=== PATIENT | male | born 1940 | race Caucasian/White ===

== ENCOUNTER → 2020-01-16 08:46 | Outpatient (CLI) | payer MEDICARE, OTHER, SELFPAY ==
--- NOTE | 2020-01-16 | DI.RAD.S_ITS ---
PROCEDURE: XR CHEST 2V INDICATIONS: Pulmonary nodules TECHNIQUE: 2 views of the chest were acquired. COMPARISON: None. FINDINGS: Surgical changes and devices: Surgical clips project over the periaortic region. Lungs and pleura: Mild streaky bibasilar opacities. No focal consolidation. Possible 1.5 cm nodular density in the left lower lung zone. No pleural effusions or pneumothorax. Mediastinum: Mediastinal contours are within normal limits with tortuous course of the thoracic aorta. Heart size is normal. Bones and chest wall: No suspicious bony abnormalities. Soft tissues appear unremarkable. IMPRESSION: Possible 1.5 cm left lower lung pulmonary nodule. Recommend comparison with any prior available chest radiographs versus further characterization with chest CT. Otherwise, no acute cardiopulmonary abnormalities. Dictated by: Jose M Salter M.D. on 01/16/2020 at 10:03 Approved by: Jose M Salter M.D. on 01/16/2020 at 10:06
== END ==
PROVIDERS: Referring Provider Internal Medicine; Visit Provider Internal Medicine
DX: R91.8 Other nonspecific abnormal finding of lung field (principal)
CPT/HCPCS: 71046

== ENCOUNTER → 2020-01-24 09:46 | Outpatient (CLI) | payer MEDICARE, OTHER, SELFPAY ==
--- NOTE | 2020-01-24 | DI.US.S_ITS ---
PROCEDURE: US SCROTUM INDICATIONS: RIGHT TESTICULAR PAIN TECHNIQUE: Real-time scanning was performed of the scrotum and testicles, with image documentation. Color and pulse Doppler interrogation was performed of both testicles. COMPARISON: None. FINDINGS: Right: Testicle is normal in size at 6.0 x 2.6 x 3.9 cm, and homogenous in echotexture. Tubular ectasia of the rete testis. Epididymis is normal in overall size and morphology. No hydrocele or varicoceles. Overlying scrotal skin is normal in thickness. Left: Testicle is normal in size at 6.1 x 2.4 x 3.6 cm, and homogeneous in echotexture. Tubular ectasia of the rete testis. Epididymis is normal in overall size and morphology. Multiple epididymal cyst, largest measuring 19 mm. No hydrocele or varicoceles. Overlying scrotal skin is normal in thickness. Doppler: Color and pulse Doppler demonstrate normal and symmetric arterial flow in both testicles. IMPRESSION: 1. 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 Intermittent testicular torsion cannot be excluded and clinical correlation is recommended. 2. Multiple left epididymal cysts. Dictated by: Scott Resendez [facility] Interpreted: Trace Alvarado MD on 01/24/2020 at 11:16 Approved by: Trace Alvarado M.D. on 01/24/2020 at 14:01
== END ==
PROVIDERS: PCP Internal Medicine; Referring Provider Physician Assistant; Visit Provider Physician Assistant
DX: N50.811 Right testicular pain (principal); N50.89 Other specified disorders of the male genital organs; N50.3 Cyst of epididymis
CPT/HCPCS: 76870

== ENCOUNTER → 2020-06-27 14:59 | Outpatient (CLI) | payer MEDICARE, OTHER, SELFPAY ==
--- NOTE | 2020-06-27 | DI.CT.S_ITS ---
PROCEDURE: CT CHEST WO CON INDICATIONS: Other nonspecific abnormal finding of lung field TECHNIQUE: Noncontrast 5 mm thick sections acquired from the pulmonary apices to the posterior costophrenic angles. 1 mm lung window, 5 mm thick coronal and sagittal and 7 mm axial MIP reformats were then acquired. For radiation dose reduction, the following was used: automated exposure control, adjustment of mA and/or kV according to patient size. COMPARISON: [facility], , XR CHEST 2V, 01/16/2020, 8:46. FINDINGS: Image quality: There is metallic streak artifact associated with surgical clips in the mediastinum. Low-dose technique was performed. Lungs and pleura: Within the left lower lobe, there is a pulmonary nodule measuring up to 7 mm on series 3, image 186. This likely corresponds to the finding on prior chest x-ray. There is scarring within the lingula as well as laterally in the left lower lobe. Minimal scarring is also demonstrated in the inferior right middle and lower lobes. No acute consolidation. No pleural effusions or pneumothorax. Central and peripheral airways are patent and normal in caliber. Mediastinum: Heart size is normal. No pericardial effusion. There is mild coronary arterial vascular calcification. No mediastinal adenopathy by size criteria. Thoracic aorta and central pulmonary arteries are normal in size. Esophagus is normal in caliber. No hiatal hernia. Bones and chest wall: There is a small lucent lesion in the T4 vertebral body likely representing a hemangioma. No vertebral body compression fractures. No axillary or supraclavicular adenopathy by size criteria Abdomen: Visualized upper abdomen demonstrates a cyst in the right hepatic dome. IMPRESSION: 1. Small left lower lobe pulmonary nodule measuring up to 7 mm. Findings likely correspond to the nodular opacity on prior x-ray. Recommend follow-up in 12 months to demonstrate stability if clinically indicated. Dictated by: Ralph Steward M.D. on 06/27/2020 at 16:30 Approved by: Ralph Steward M.D. on 06/27/2020 at 16:35
== END ==
PROVIDERS: PCP Internal Medicine; Referring Provider Internal Medicine; Visit Provider Internal Medicine
DX: R91.1 Solitary pulmonary nodule (principal)
CPT/HCPCS: 71250

== ENCOUNTER 2020-11-10 12:26 | Emergency (ER) | payer MEDICARE, OTHER, SELFPAY ==
[2020-11-10] VITALS (24 sets, daily range): BP systolic 109–133; BP diastolic 71–99; PULSE 44–105; RESP 12–27; TEMP 36.6; O2SAT 94–100; BMI 22.7
--- NOTE | 2020-11-10 12:44 | DI.RAD.S_ITS ---
PROCEDURE: XR CHEST 1V INDICATIONS: chest pain TECHNIQUE: One view of the chest was acquired. COMPARISON: [facility], CR, XR CHEST 2V, 01/16/2020, 8:46. FINDINGS: Surgical changes and devices: Superior left mediastinal clips are seen, as before. Lungs and pleura: The previously seen left lower lung apparent nodular opacity is attributed to a nipple shadow. On this semiupright portable chest examination, no large pneumothorax or large pleural effusions are seen. No focal infiltrates are seen. Mediastinum: The cardiac contours are within normal limits. The aorta demonstrates calcification and tortuosity. Bones and chest wall: No suspicious bony lesions. Age-appropriate bony degenerative changes are seen. Overlying soft tissues appear unremarkable. IMPRESSION: No acute cardiopulmonary process is seen. Dictated by: Duc Aguilar M.D. on 11/10/2020 at 12:10 Approved by: Duc Aguilar M.D. on 11/10/2020 at 12:12
[2020-11-10 13:11] LABS: Add Manual Diff / Slide Review NO; Basophils Absolute Auto 100 /uL (0-100); Basophils Percent Auto 1.5 % (0-2); Eosinophils Absolute Auto 200 /uL (0-450); Eosinophils Percent Auto 3.4 % (2-4); Hematocrit 43.8 % (41-53); Lymphocytes Absolute Auto 600 /uL (1100-4500); Lymphocytes Percent Auto 12.4 % (25-40); Mean Corpuscular HGB Conc 34.3 % (30-36); Mean Corpuscular Hemoglobin 31.5 PG (26-34); Mean Corpuscular Volume 91.9 fL (80-100); Monocytes Absolute Auto 500 /uL (0-900); Monocytes Percent Auto 10.4 % (3-14); Neutrophils Absolute Auto 3400 /uL (1500-7000); Neutrophils Percent Auto 72.3 % (50-75); Platelet Count 202 X10^3/uL (150-400); Red Blood Cell Count 4.76 X10^6/uL (4.5-5.9); Red Cell Distribution Width 13.5 % (11.6-14.8); White Blood Cell Count 4.7 X10^3/uL (4.5-11.0)
[2020-11-10 13:15] LABS: INR 1.2 (0.9-1.3); Prothrombin Time 13.2 SECONDS (10.1-12.7)
[2020-11-10 13:17] LABS: PTT Partial Thromboplastin Tim 37 SECONDS (26.4-36.2)
[2020-11-10 13:19] LABS: Alanine Aminotransferase 43 IU/L (<50); Albumin 4.3 g/dL (3.5-5.0); Albumin Globulin Ratio 1.5 (1.0-2.8); Alkaline Phosphatase 67 U/L (38-126); Aspartate Aminotransferase 45 IU/L (17-59); BUN Creatinine Ratio 13.6 (6-22); Bilirubin Total 0.5 mg/dL (0.2-1.3); Blood Urea Nitrogen 9 mg/dL (9-20); Calcium 9.4 mg/dL (8.4-10.2); Carbon Dioxide 27 mmol/L (22-32); Chloride 99 mmol/L (98-107); Creatine Kinase 72 U/L (55-170); Estimated Glomerular Filt Rate > 60.0 mL/min (>60); Globulin 2.8 g/dL (1.7-4.1); Glucose 115 mg/dL (80-110); HEMOLYSIS < 15 (0-50); Lipase 124 U/L (23-300); Potassium 4.4 mmol/L (3.4-5.1); Sodium 134 mmol/L (137-145); Total Protein 7.1 g/dL (6.3-8.2)
--- NOTE | 2020-11-10 13:27 | ED.ARRPALP ---
HPI - Arrhythmia/Palpitations General Chief Complaint: Arrhythmia/Palpitations Stated Complaint: Heart issues/HBP Time Seen by Provider: 11/10/20 13:22 Source: patient Mode of arrival: Family Vehicle Limitations: no limitations History of Present Illness HPI narrative: Patient is a 80-year-old male. Is healthy except for what sounds like paroxysmal atrial fibrillation. He is on apixaban for this. States he does take it every day and has not missed a dose in the past 4 weeks. He has been on it since 2016. 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 His only other issue was hypothyroid and is on levothyroxine for this. Comes to the emergency department today because he feels like something is going on the left side of his chest. Last week he had a couple ?twinges ?in the left side of his chest but did not come in to be evaluated for this. He is having no lightheadedness. No shortness of breath. Is able to exercise like normal. And did this as recently as this morning. Related Data Home Medications Medication Instructions Recorded Confirmed apixaban 5 mg tablet 5 mg PO BID 07/31/20 11/10/20 levothyroxine 150 mcg capsule 150 mcg PO DAILY 07/31/20 11/10/20 Allergies Allergy/AdvReac Type Severity Reaction Status Date / Time sulfamethoxazole AdvReac Intermediate Swelling Verified 11/10/20 12:49 [From Bactrim] of Lip/Tongue/Throat trimethoprim [From Bactrim] AdvReac Intermediate Verified 11/10/20 12:50 Review of Systems Constitutional Constitutional: Denies chills, Denies fatigue, Denies fever(s) and Denies headache(s) Eyes Eyes: Denies change in vision ENT Ears, Nose, Mouth, and Throat: Denies headache(s) and Denies sore throat Cardiovascular Cardiovascular: Denies chest pain, Denies syncope, Reports irregular heart rhythm, Denies leg edema, Denies lightheadedness and Denies dyspnea Respiratory Respiratory: Denies cough and Denies dyspnea Gastrointestinal Gastrointestinal: Denies abdominal pain, Denies nausea and Denies vomiting Genitourinary Genitourinary: Denies dysuria Genitourinary: Denies dysuria Musculoskeletal Musculoskeletal: Denies arthralgias and Denies myalgias Integumentary/Breasts Skin/Breast: Denies rash Neurologic Neurologic: Denies behavioral changes, Denies syncope and Denies headache(s) Psychiatric Psychiatric: Denies behavioral changes Endocrine Endocrine: Denies fatigue Hematologic/Lymphatic On Anticoagulants: Yes Allergic/Immunologic Allergic/Immunologic: Denies urticaria Patient History Medical History Hearing loss Hypothyroid Paroxysmal A-fib Social History Smoking Status: Former smoker Smoking Status: Former smoker alcohol intake frequency: 0-2 drinks per day Substance Use Type: does not use Exam Initial Vital Signs Initial Vital Signs: Vital Signs Pulse Rate 99 H 11/10/20 12:35 Respiratory Rate 16 11/10/20 12:35 Pulse Oximetry 99 11/10/20 12:35 Const General: cooperative, comfortable and well developed Limitations: mental status not altered HENMT Head: normal to inspection and normocephalic Eyes General: appearance normal, both eyes and all related structures Chest Chest: No crepitus Resp Effort & Inspection: normal respiratory effort Auscultation: clear to auscultation bilaterally Cardio Rate: tachycardic Rhythm: abnormal rhythm GI Inspection: non-distended Palpation: soft Skin Lesions: no lesions Rashes: no rashes Neuro General: patient alert, patient awake and patient oriented x3 Cognition: normal cognition Speech: speech normal Extrem General: normal to inspection and capillary refill normal Psych Appearance: grossly normal and well kempt Procedures Cardioversion Consent Signed: Yes Indication: Atrial fibrillation Stability: Stable Number of attempts (shocks): 1 Joules used: 120 Cardiac rhythm post-cardioversion: Sinus bradycardia Procedural Sedation Consent signed: Yes Time out performed: Yes Indication: cardioversion Presedation Evaluation: See note ASA Class: II Mallampati Airway Classification: Class I Preparation: desk monitor applied, pulse oximeter, capnometry used, supplemental O2 applied and suction/airway equipment at bedside Fentanyl: IV Fentanyl dose (mcg): 12 IV Propofol dose (mg): 50 Intraservice time/total sedation time (min): 10 ED Sedation Level: Moderate (Concious) Patient Tolerated Procedure: No complications Complications: none Scores GCS Holcomb coma scale eye opening: Spontaneous Holcomb coma scale verbal response: Orientated Dario coma scale motor response: Obey commands Dario coma scale total score: 15 Course Orders Ordered: ED Orders 11/10/20 12:44 XR chest 1V Stat 04/25/21 12:54 Complete Blood Count AUTO DIFF Stat Comprehensive Metabolic Panel Stat Lipase Stat Partial Thromboplastin Time Stat Prothrombin Time INR Stat Troponin & CK Cardiac Panel Stat 11/10/20 12:55 EKG-12 Lead Stat 11/10/20 14:21 COVID19 -Nasal swab/Pre-Proc Stat 11/10/20 14:36 EKG-12 Lead Stat Discontinued Medications Fentanyl (Fentanyl 100 Mcg/2 Ml Inj) 12.5 mcg IV NOW ONE Stop: 11/10/20 13:45 Last Admin: 11/10/20 14:25 Dose: 12.5 mcg Documented by: ISAK Sodium Chloride (Normal Saline 0.9%) 1,000 mls @ 1,000 mls/hr IV BOLUS ONE Stop: 11/10/20 14:48 Last Admin: 11/10/20 14:26 Dose: 1,000 mls/hr Documented by: ISAK Sodium Chloride (Normal Saline 0.9%) 1,000 mls @ 1,000 mls/hr IV BOLUS ONE Stop: 11/10/20 15:05 Last Admin: 11/10/20 14:26 Dose: Not Given Documented by: ISAK Propofol (Propofol 200 Mg/20 Ml Vial) 100 mg IV NOW ONE Stop: 11/10/20 13:45 Last Admin: 11/10/20 14:25 Dose: 100 mg Documented by: ISAK Vital Signs Vital signs: Vital Signs - 8 hr 11/10/20 12:35 11/10/20 12:45 11/10/20 13:00 Temperature 97.9 F Pulse Rate 99 H 98 H 96 H Respiratory Rate 16 20 17 Blood Pressure 133/84 129/99 H Blood Pressure [Left Arm] Pulse Oximetry 99 99 97 11/10/20 13:30 11/10/20 14:00 11/10/20 14:04 Temperature Pulse Rate 105 H 95 H 90 Respiratory Rate 22 23 22 Blood Pressure 109/80 118/95 H Blood Pressure [Left Arm] Pulse Oximetry 97 98 98 11/10/20 14:05 11/10/20 14:10 11/10/20 14:15 Temperature Pulse Rate 90 99 H 91 H Respiratory Rate 21 17 26 H Blood Pressure 120/91 H 126/81 124/92 H Blood Pressure [Left Arm] Pulse Oximetry 94 98 100 11/10/20 14:25 11/10/20 14:27 11/10/20 14:30 Temperature Pulse Rate 87 89 88 Respiratory Rate 14 20 12 Blood Pressure 122/80 123/80 Blood Pressure [Left Arm] 113/94 H Pulse Oximetry 97 98 94 11/10/20 14:35 11/10/20 14:40 11/10/20 14:45 Temperature Pulse Rate 95 H 93 H 90 Respiratory Rate 14 16 25 H Blood Pressure 115/87 111/91 H 113/94 H Blood Pressure [Left Arm] Pulse Oximetry 97 98 100 11/10/20 14:50 11/10/20 14:51 11/10/20 14:54 Temperature Pulse Rate 54 L 70 52 L Respiratory Rate 18 25 H 18 Blood Pressure 128/96 H 130/75 Blood Pressure [Left Arm] 128/96 H 130/75 Pulse Oximetry 94 99 99 11/10/20 14:55 11/10/20 14:58 11/10/20 15:00 Temperature Pulse Rate 49 L 48 L 48 L Respiratory Rate 18 24 27 H Blood Pressure 118/71 117/76 Blood Pressure [Left Arm] 117/76 Pulse Oximetry 99 100 100 11/10/20 15:04 11/10/20 15:09 Temperature Pulse Rate 44 L 48 L Respiratory Rate 14 25 H Blood Pressure Blood Pressure [Left Arm] 114/79 115/82 Pulse Oximetry 100 100 MDM - Arrhythmia/Palpitations Lab Data Attestation: I reviewed the patient's lab results. Result diagrams: 11/10/20 12:54 11/10/20 12:54 Labs: Lab Results 11/10/20 11/10/20 11/10/20 Range/Units 12:54 12:54 12:54 WBC 4.7 (4.5-11.0) X10^3/uL RBC 4.76 (4.5-5.9) X10^6/uL Hgb 15.0 (13.5-17.5) g/dL Hct 43.8 (41-53) % MCV 91.9 (80-100) fL MCH 31.5 (26-34) PG MCHC 34.3 (30-36) % RDW 13.5 (11.6-14.8) % Plt Count 202 (150-400) X10^3/uL Neut % (Auto) 72.3 (50-75) % Lymph % (Auto) 12.4 L (25-40) % [place] % (Auto) 10.4 (3-14) % Eos % (Auto) 3.4 (2-4) % Baso % (Auto) 1.5 (0-2) % Neut # (Auto) 3400 (2426-2044) /uL Lymph # (Auto) 600 L (3182-9022) /uL [place] # (Auto) 500 (0-900) /uL Eos # (Auto) 200 (0-450) /uL Baso # (Auto) 100 (0-100) /uL PT 13.2 H (10.1-12.7) SECONDS INR 1.2 (0.9-1.3) APTT 37 H (26.4-36.2) SECONDS Sodium 134 L (137-145) mmol/L Potassium 4.4 (3.4-5.1) mmol/L Chloride 99 (98-107) mmol/L Carbon Dioxide 27 (22-32) mmol/L BUN 9 (9-20) mg/dL Creatinine 0.66 (0.66-1.25) mg/dL Estimated GFR > 60.0 (>60) mL/min BUN/Creatinine Ratio 13.6 (6-22) Glucose 115 H (80-110) mg/dL Calcium 9.4 (8.4-10.2) mg/dL Total Bilirubin 0.5 (0.2-1.3) mg/dL AST 45 (17-59) IU/L ALT 43 (<50) IU/L Alkaline Phosphatase 67 (38-126) U/L Total Creatine Kinase 72 (55-170) U/L CK-MB (CK-2) TNP CK-MB (CK-2) Rel Index TNP Troponin I < 0.012 (0.01-0.034) ng/mL Total Protein 7.1 (6.3-8.2) g/dL Albumin 4.3 (3.5-5.0) g/dL Globulin 2.8 (1.7-4.1) g/dL Albumin/Globulin Ratio 1.5 (1.0-2.8) Lipase 124 (23-300) U/L SARS-CoV-2 (PCR) (Negative) 11/10/20 Range/Units 14:21 WBC (4.5-11.0) X10^3/uL RBC (4.5-5.9) X10^6/uL Hgb (13.5-17.5) g/dL Hct (41-53) % MCV (80-100) fL MCH (26-34) PG MCHC (30-36) % RDW (11.6-14.8) % Plt Count (150-400) X10^3/uL Neut % (Auto) (50-75) % Lymph % (Auto) (25-40) % [place] % (Auto) (3-14) % Eos % (Auto) (2-4) % Baso % (Auto) (0-2) % Neut # (Auto) (6477-7199) /uL Lymph # (Auto) (8417-9435) /uL [place] # (Auto) (0-900) /uL Eos # (Auto) (0-450) /uL Baso # (Auto) (0-100) /uL PT (10.1-12.7) SECONDS INR (0.9-1.3) APTT (26.4-36.2) SECONDS Sodium (137-145) mmol/L Potassium (3.4-5.1) mmol/L Chloride (98-107) mmol/L Carbon Dioxide (22-32) mmol/L BUN (9-20) mg/dL Creatinine (0.66-1.25) mg/dL Estimated GFR (>60) mL/min BUN/Creatinine Ratio (6-22) Glucose (80-110) mg/dL Calcium (8.4-10.2) mg/dL Total Bilirubin (0.2-1.3) mg/dL AST (17-59) IU/L ALT (<50) IU/L Alkaline Phosphatase (38-126) U/L Total Creatine Kinase (55-170) U/L CK-MB (CK-2) CK-MB (CK-2) Rel Index Troponin I (0.01-0.034) ng/mL Total Protein (6.3-8.2) g/dL Albumin (3.5-5.0) g/dL Globulin (1.7-4.1) g/dL Albumin/Globulin Ratio (1.0-2.8) Lipase (23-300) U/L SARS-CoV-2 (PCR) Negative (Negative) Imaging Data Chest x-ray: Radiologist's Impresson: [facility] [place] [id number] ReportSigned Patient: Gael Du RMR#: [id number]: 3Acct:[id number]/Sex: 80 / MDate of Service: 11/10/20Loc: EDAccession Number: [id number] Procedure: XR chest 1V Ordering Provider: Zay Hernandez D.O. PROCEDURE: XR CHEST 1V INDICATIONS: chest pain TECHNIQUE: One view of the chest was acquired. COMPARISON: [facility], CR, XR CHEST 2V, 01/16/2020, 8:46. FINDINGS: Surgical changes and devices: Superior left mediastinal clips are seen, as before. Lungs and pleura: The previously seen left lower lung apparent nodular opacity is attributed to a nipple shadow. On this semiupright portable chest examination, no large pneumothorax or large pleural effusions are seen. No focal infiltrates are seen. Mediastinum: The cardiac contours are within normal limits. The aorta demonstrates calcification and tortuosity. Bones and chest wall: No suspicious bony lesions. Age-appropriate bony degenerative changes are seen. Overlying soft tissues appear unremarkable. IMPRESSION: No acute cardiopulmonary process is seen. Dictated by: Duc Aguilar M.D. on 11/10/2020 at 12:10 Approved by: Duc Aguilar M.D. on 11/10/2020 at 12:12 ECG Data Attestation: I personally reviewed and interpreted this ECG as follows: Prior ECG tracings: not available for review Interpretation: Atrial fibrillation Ventricular rate 89 Left axis deviation Normal QRS Nonspecific ST T wave changes Post cardioversion EKG Sinus bradycardia Ventricular rate of 49 Occasional PAC Normal QRS Left axis deviation No ST T wave changes MDM Narrative Medical decision making narrative: Patient arrived in atrial fibrillation and heart rate ranged anywhere from mid 80s to mid 120s. He was not hypotensive. Discussed with him his option of cardioversion verses medication. He has been on apixaban every day for at least the past 4 weeks so he is a candidate for cardioversion. After this discussion he opted to be cardioverted and this was completed with 1 attempt as described above. Afterwards patient was bradycardic however he states that his heart rate is normally in the 40s. He stood at bedside and had no symptoms with regard to this. Will hold on putting him on any further medication. Will have him contact his primary doctor for follow-up. He was given return precautions and follow-up instructions. He expressed understanding and agreement. Discharge Plan Departure Patient Disposition: Home Clinical Impression: Atrial fibrillation Instructions: DI for Cardioversion, DI for Atrial Fibrillation Activity Restrictions/Additional Instructions: You do need to continue all of your medication to include the Eliquis. Contact your primary provider for a follow-up. Return to the emergency department for any new or worsening symptoms Prescriptions: No Action Eliquis 5 mg tablet 5 mg PO BID RF: 0 levothyroxine 150 mcg capsule 150 mcg PO DAILY RF: 0 Referrals: Ramiro Granger MD [Primary Care Provider] -
[2020-11-10 13:31] LABS: Troponin I < 0.012 ng/mL (0.01-0.034)
[2020-11-10] MEDS: fentaNYL 100 MCG/2 ML INJ 12.5 MCG IV (14:25)
[2020-11-10] MEDS: propofoL 200 MG/20 ML VIAL 100 MG IV (14:25)
[2020-11-10] MEDS: SODIUM CHLORIDE 0.9% 1,000 ML 1000 ML IV (14:26)
[2020-11-10 14:42] LABS: COVID19 -Nasal RAPID Negative (Negative)
--- NOTE | 2020-11-10 15:02 | PC.NURSE ---
patient was shocked one time and his heart rate dropped to mid 40s. His EKG show afib with slow ventricular response. He was denying pain or discomfort. His new EKG shows sinus jimi at 44-50 bpm.
== END 2020-11-10 15:41 | disposition home or self-care (01) ==
PROVIDERS: Emergency Provider Emergency Medicine; PCP Family Medicine
DX: I48.91 Unspecified atrial fibrillation (principal); Z20.822 Contact with and (suspected) exposure to COVID-19
CPT/HCPCS: 36415; 71045; 80053; 82550; 83690; 84484; 85025; 85610; 85730; 87635; 92960; 93005; 96360; 99152; 99285; C9803; J2704; J3010

== ENCOUNTER 2020-11-16 16:02 | Emergency (ER) | payer MEDICARE, OTHER, SELFPAY ==
[2020-11-16] VITALS (18 sets, daily range): BP systolic 107–152; BP diastolic 64–79; PULSE 53–123; RESP 18–44; TEMP 36.8; O2SAT 92–98; BMI 22.9
--- NOTE | 2020-11-16 16:30 | DI.RAD.S_ITS ---
PROCEDURE: XR CHEST 1V INDICATIONS: palpitations, new onset Afib TECHNIQUE: One view of the chest was acquired. COMPARISON: [facility], CT, CT CHEST WO CON, 06/27/2020, 15:06. [facility], CR, XR CHEST 2V, 01/16/2020, 8:46. [facility], CR, XR CHEST 1V, 11/10/2020, 12:47. FINDINGS: Surgical changes and devices: Surgical clips overlying the mediastinum are unchanged. Overlying EKG wires. Lungs and pleura: Stable elevation of the left hemidiaphragm. Linear densities at the left lung base likely representing atelectasis/scarring. Nodular densities overlying the mid to lower lungs bilaterally with the right measuring approximately 1.2 centimeters may represent nipple shadows. Known lung nodule better depicted on comparison CT. No focal consolidation, pneumothorax, or pleural effusion. Mediastinum: Mediastinal contours appear normal. Heart size is normal. Bones and chest wall: No suspicious bony lesions. Degenerative changes of the shoulders and spine. Overlying soft tissues appear unremarkable. IMPRESSION: No evidence of an acute cardiopulmonary abnormality. Lung nodule better depicted on comparison CT. Dictated by: Bryan St D.O. on 11/16/2020 at 15:59 Approved by: Bryan [address] D.O. on 11/16/2020 at 16:03
--- NOTE | 2020-11-16 16:32 | ED_ITS ---
HPI - Arrhythmia/Palpitations General Chief Complaint: Arrhythmia/Palpitations Stated Complaint: High HR, Palps, Poss AFIB Time Seen by Provider: 11/16/20 16:15 Source: patient Mode of arrival: Family Vehicle Limitations: no limitations History of Present Illness HPI narrative: 80-year-old male former smoker with history of AFib on apixaban) and hypothyroid presents with his in the chief complaint of a recurrence of palpitations and some shortness of breath that started about 8:00 a.m. this morning. He has been on apixaban for quite some time and states he has missed no does in quite some time. He was seen and evaluated here under very similar circumstances on November 10 and had a successful cardioversion with propofol. 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 He denies any forbes ge in any of his medications. He denies any fever chills. He has no chest pain. MD complaint: rapid heart beat and irregular heart beat Onset (ago): hour(s) Duration: constant Severity: moderate Context: occurred during rest Arrhythmia history: atrial fibrillation Associated symptoms: shortness of breath Related Data Home Medications Medication Instructions Recorded Confirmed apixaban 5 mg tablet 5 mg PO BID 07/31/20 11/10/20 levothyroxine 150 mcg capsule 150 mcg PO DAILY 07/31/20 11/10/20 Allergies Allergy/AdvReac Type Severity Reaction Status Date / Time sulfamethoxazole Allergy Severe Swelling Verified 11/16/20 16:33 [From Bactrim] of Lip/Tongue/Throat trimethoprim [From Bactrim] Allergy Severe Swelling Verified 11/16/20 16:33 of Lip/Tongue/Throat Review of Systems Constitutional Constitutional: Denies chills, Denies fatigue, Denies fever(s), Denies frequent falls, Denies lethargy and Denies weakness Eyes Eyes: Denies change in vision, Denies eye discharge, Denies irritation and Denies loss of vision ENT Ears, Nose, Mouth, and Throat: Denies change in voice, Denies dizziness, Denies neck pain, Denies sore throat and Denies throat swelling Cardiovascular Cardiovascular: Denies chest pain, Reports irregular heart rhythm, Denies lightheadedness, Reports palpitations, Reports dyspnea, Denies dyspnea on exertion and Denies orthopnea Respiratory Respiratory: Denies cough, Reports dyspnea, Denies dyspnea on exertion and Denies wheezing Gastrointestinal Gastrointestinal: Denies abdominal pain, Denies change in bowel habits, Denies diarrhea, Denies nausea and Denies vomiting Musculoskeletal Musculoskeletal: Denies neck pain and Denies numbness Integumentary/Breasts Skin/Breast: Denies pruritus, Denies erythema, Denies rash and Denies wounds Neurologic Neurologic: Denies behavioral changes, Denies confusion, Denies dizziness, Delbert es frequent falls, Denies loss of vision, Denies numbness and Denies weakness Psychiatric Psychiatric: Denies anxiety, Denies behavioral changes, Denies confusion, Denies depression, Denies homicidal ideation and Denies suicidal ideation Endocrine Endocrine: Denies fatigue, Denies flushing and Reports palpitations Hematologic/Lymphatic Hematologic/Lymphatic: Denies easy bruising Allergic/Immunologic Allergic/Immunologic: Denies urticaria, Denies throat swelling and Denies wheezing Patient History Medical History Hearing loss Hypothyroid Paroxysmal A-fib Social History Smoking Status: Former smoker Smoking Status: Former smoker alcohol intake frequency: 0-2 drinks per day Substance Use Type: does not use Exam Narrative Exam Narrative: GENERAL: [80] year old patient appears stated age. Well-nourished, well-developed patient, in mild distress. HEAD: Atraumatic. Normocephalic. EYES: Pupils equal round and reactive. Extraocular motions intact. No scleral icterus. No injection or drainage. ENT: Nose without bleeding, purulent drainage. Throat without erythema, tonsillar hypertrophy or exudate. Airway patent. NECK: Trachea midline. Non tender CARDIOVASCULAR: Tachycardic and irregular rhythm without murmurs, gallops, or rubs. RESPIRATORY: Clear to auscultation. Breath sounds equal bilaterally. No wheezes, rales, or rhonchi. GASTROINTESTINAL: Abdomen soft, non-tender, nondistended. EXTREMITIES: No edema or joint tenderness. BACK: Nontender without deformity or crepitance. No flank tenderness. NEURO: AOx3. SKIN: No rash or erythema of visible areas Initial Vital Signs Initial Vital Signs: Vital Signs Temperature 98.2 F 11/16/20 16:22 Pulse Rate 117 H 11/16/20 16:22 Respiratory Rate 20 11/16/20 16:22 Blood Pressure 110/74 11/16/20 16:22 Pulse Oximetry 98 11/16/20 16:22 Procedures Cardioversion Consent Signed: Yes Indication: cardioversion Stability: Stable Number of attempts (shocks): 1 Joules used: 150 Cardiac rhythm post-cardioversion: NSR Procedural Sedation Consent signed: Yes Time out performed: Yes Indication: cardioversion ASA Class: II Mallampati Airway Classification: Class I Preparation: sales forecast analyst applied, pulse oximeter, capnometry used, supp lemental O2 applied, suction/airway equipment at bedside and IV secured IV Propofol dose (mg): 50 Intraservice time/total sedation time (min): 10 ED Sedation Level: Moderate (Concious) Patient Tolerated Procedure: Well Complications: none Course Orders Ordered: ED Orders 11/16/20 16:30 XR chest 1V Stat Basic Metabolic Panel Stat Complete Blood Count AUTO DIFF Stat Magnesium Stat Thyroid Stimulating Hormone Stat Troponin & CK Cardiac Panel Stat EKG-12 Lead Stat 11/16/20 17:08 EKG-12 Lead Stat Sodium Chloride (Normal Saline 0.9%) 1,000 mls @ 150 mls/hr IV CONT ALIREZA Last Admin: 11/16/20 16:53 Dose: 999 mls/hr Documented by: Discontinued Medications Propofol (Propofol 200 Mg/20 Ml Vial) 100 mg IV NOW ONE Stop: 11/16/20 16:43 Last Admin: 11/16/20 16:59 Dose: 50 mg Documented by: Vital Signs Vital signs: Vital Signs - 8 hr 11/16/20 16:22 11/16/20 16:55 11/16/20 16:57 Temperature 98.2 F Pulse Rate 117 H 115 H 123 H Respiratory Rate 20 24 24 Blood Pressure 110/74 140/66 Pulse Oximetry 98 97 96 11/16/20 17:00 11/16/20 17:05 11/16/20 17:06 Temperature Pulse Rate 116 H 62 61 Respiratory Rate 25 H 21 21 Blood Pressure 152/66 H 111/66 Pulse Oximetry 98 97 92 11/16/20 17:10 11/16/20 17:13 11/16/20 17:15 Temperature Pulse Rate 57 L 122 H 56 L Respiratory Rate 22 18 22 Blood Pressure 116/70 113/75 Pulse Oximetry 97 98 11/16/20 17:21 Temperature Pulse Rate 53 L Respiratory Rate 18 Blood Pressure 124/73 Pulse Oximetry 98 [facility] - Arrhythmia/Palpitations Lab Data Result diagrams: 11/16/20 16:40 11/16/20 16:40 Labs: Lab Results 11/16/20 11/16/20 Range/Units 16:40 16:40 WBC 5.4 (4.5-11.0) X10^3/uL RBC 4.76 (4.5-5.9) X10^6/uL Hgb 15.1 (13.5-17.5) g/dL Hct 43.5 (41-53) % MCV 91.4 (80-100) fL MCH 31.6 (26-34) PG MCHC 34.6 (30-36) % RDW 13.3 (11.6-14.8) % Plt Count 193 (150-400) X10^3/uL Neut % (Auto) 81.2 H (50-75) % Lymph % (Auto) 8.9 L (25-40) % [place] % (Auto) 7.6 (3-14) % Eos % (Auto) 1.4 L (2-4) % Baso % (Auto) 0.9 (0-2) % Neut # (Auto) 4400 (2672-9164) /uL Lymph # (Auto) 500 L (6958-3620) /uL [place] # (Auto) 400 (0-900) /uL Eos # (Auto) 100 (0-450) /uL Baso # (Auto) 0 (0-100) /uL Sodium 135 L (137-145) mmol/L Potassium 4.3 (3.4-5.1) mmol/L Chloride 101 (98-107) mmol/L Carbon Dioxide 27 (22-32) mmol/L BUN 10 (9-20) mg/dL Creatinine 0.62 L (0.66-1.25) mg/dL Estimated GFR > 60.0 (>60) mL/min BUN/Creatinine Ratio 16.1 (6-22) Glucose 111 H (80-110) mg/dL Calcium 9.1 (8.4-10.2) mg/dL Magnesium 2.0 (1.6-2.3) mg/dL Total Creatine Kinase 87 (55-170) U/L CK-MB (CK-2) TNP CK-MB (CK-2) Rel Index TNP Troponin I < 0.012 (0.01-0.034) ng/mL MDM Narrative Medical decision making narrative: Patient doing quite well post procedure., he continues in is normal sinus rhythm. Patient has no concerning lab abnormalitie s. We spoke length about this likely being evidence that following up with Cardiology is an appropriate route. Return precautions have been given and questions answered to his apparent satisfaction. Discharge Plan Departure Patient Disposition: Home Clinical Impression: Atrial fibrillation Qualifiers: Atrial fibrillation type: paroxysmal Qualified Code(s): I48.0 - Paroxysmal atrial fibrillation Instructions: DI for Atrial Fibrillation Activity Restrictions/Additional Instructions: *You have been diagnosed with [rapid atrial fibrillation status post electrocardioversion] *What to do: *Continue to take medications as directed *Follow up with your primary care provider in 2-3 days, call for an appointment. Let them know you were seen in the Emergency Department and that we ask that you be seen in follow up. It would seem reasonable to establish with cardiology, I'll include contact info for [facility] *Return to ER if you should have any new, worsening or concerning symptoms Prescriptions: No Action Eliquis 5 mg tablet 5 mg PO BID RF: 0 levothyroxine 150 mcg capsule 150 mcg PO DAILY RF: 0 Referrals: Ramiro Granger MD [Primary Care Provider] - Neelam Du MD [Physician] -
[2020-11-16] MEDS: SODIUM CHLORIDE 0.9% 1,000 ML 999 ML IV (16:53)
[2020-11-16] MEDS: propofoL 200 MG/20 ML VIAL 100 MG IV (16:59)
[2020-11-16 17:06] LABS: BUN Creatinine Ratio 16.1 (6-22); Blood Urea Nitrogen 10 mg/dL (9-20); Calcium 9.1 mg/dL (8.4-10.2); Carbon Dioxide 27 mmol/L (22-32); Chloride 101 mmol/L (98-107); Creatine Kinase 87 U/L (55-170); Estimated Glomerular Filt Rate > 60.0 mL/min (>60); Glucose 111 mg/dL (80-110); HEMOLYSIS 36 (0-50); Potassium 4.3 mmol/L (3.4-5.1); Sodium 135 mmol/L (137-145)
--- NOTE | 2020-11-16 17:14 | RT ---
Called to bedside for Cardioversion. Etco2 on, suction at bedside on and functional as well as Bag Mask unit. Pt on 2 lpm nc, sao2 @97% and pt pauly well. No distress noted airway patient and at bedside. Released by Rn, Pt awake and alert
[2020-11-16 17:17] LABS: Add Manual Diff / Slide Review NO; Basophils Absolute Auto 0 /uL (0-100); Basophils Percent Auto 0.9 % (0-2); Eosinophils Absolute Auto 100 /uL (0-450); Eosinophils Percent Auto 1.4 % (2-4); Hematocrit 43.5 % (41-53); Hemoglobin 15.1 g/dL (13.5-17.5); Lymphocytes Absolute Auto 500 /uL (1100-4500); Lymphocytes Percent Auto 8.9 % (25-40); Mean Corpuscular HGB Conc 34.6 % (30-36); Mean Corpuscular Hemoglobin 31.6 PG (26-34); Mean Corpuscular Volume 91.4 fL (80-100); Monocytes Absolute Auto 400 /uL (0-900); Monocytes Percent Auto 7.6 % (3-14); Neutrophils Absolute Auto 4400 /uL (1500-7000); Neutrophils Percent Auto 81.2 % (50-75); Platelet Count 193 X10^3/uL (150-400); Red Blood Cell Count 4.76 X10^6/uL (4.5-5.9); Red Cell Distribution Width 13.3 % (11.6-14.8); White Blood Cell Count 5.4 X10^3/uL (4.5-11.0)
[2020-11-16 17:18] LABS: Troponin I < 0.012 ng/mL (0.01-0.034)
[2020-11-16 17:48] LABS: Thyroid Stimulating Hormone 0.093 uIU/mL (0.47-4.68)
== END 2020-11-16 18:12 | disposition home or self-care (01) ==
PROVIDERS: Emergency Provider Emergency Medicine; PCP Family Medicine
DX: I48.0 Paroxysmal atrial fibrillation (principal); Z79.01 Long term (current) use of anticoagulants; R06.02 Shortness of breath
CPT/HCPCS: 36415; 71045; 80048; 82550; 83735; 84443; 84484; 85025; 92960; 93005; 96360; 99152; 99285; 99291; J2704

== ENCOUNTER 2021-01-30 11:40 | Emergency (ER) | payer MEDICARE, OTHER, SELFPAY ==
[2021-01-30] VITALS (24 sets, daily range): BP systolic 105–131; BP diastolic 58–88; PULSE 34–113; RESP 14–28; TEMP 36.2; O2SAT 96–100
--- NOTE | 2021-01-30 11:43 | DI.RAD.S_ITS ---
PROCEDURE: XR CHEST 1V INDICATIONS: chest pain TECHNIQUE: One view of the chest was acquired. COMPARISON: [facility], CT, CT CHEST WO CON, 06/27/2020, 15:06. [facility], CR, XR CHEST 1V, 11/16/2020, 16:38. FINDINGS: Surgical changes and devices: Surgical clips projecting over the mediastinum are stable. Lungs and pleura: Lungs are clear of acute opacities. Small nodular densities in the left lung base are not significantly changed compared to prior exam. No pleural effusions or pneumothorax. Mediastinum: Mediastinal contours appear normal. Heart size is normal. Bones and chest wall: No suspicious bony lesions. Overlying soft tissues appear unremarkable. IMPRESSION: No acute cardiopulmonary disease process. Dictated by: Nida Jeffery MD, PhD on 01/30/2021 at 12:30 Approved by: Nida Jeffery MD, PhD on 01/30/2021 at 12:32
--- NOTE | 2021-01-30 12:03 | ED_ITS ---
HPI - Arrhythmia/Palpitations General Chief Complaint: Arrhythmia/Palpitations Stated Complaint: afib since yesterday afternoon Time Seen by Provider: 01/30/21 11:47 Source: patient Mode of arrival: Ambulatory Limitations: no limitations History of Present Illness HPI narrative: 80-year-old male on apixaban daily for an atrial fibrillation who has been here in the emergency department to times in the past with atrial fibrillation requiring cardioversion is also been seen in outside facility regarding cardioversion as well here for evaluation of what he states is AFib. States he felt like he went into AFib yesterday he is scheduled to see Cardiology an ablation approximately 1 month from now. He is not having chest pain. No lightheadedness. Is taking off his medications as directed. Related Data Home Medications Medication Instructions Recorded Confirmed apixaban 5 mg tablet (Eliquis) 5 mg PO BID 07/31/20 01/30/21 levothyroxine 150 mcg capsule 150 mcg PO DAILY 07/31/20 01/30/21 metoprolol tartrate 25 mg tablet 25 mg PO BID PRN 01/30/21 01/30/21 Allergies Allergy/AdvReac Type Severity Reaction Status Date / Time sulfamethoxazole Allergy Severe Swelling Verified 01/30/21 11:52 [From Bactrim] of Lip/Tongue/Throat trimethoprim [From Bactrim] Allergy Severe Swelling Verified 01/30/21 11:52 of Lip/Tongue/Throat Review of Systems Constitutional Constitutional: Reports system reviewed and no additional complaints, except as documented and Denies fever(s) Cardiovascular Cardiovascular: Denies chest pain, Reports rapid heart rate and Denies dyspnea Respiratory Respiratory: Denies dyspnea Gastrointestinal Gastrointestinal: Denies abdominal pain and Denies nausea Musculoskeletal Musculoskeletal: Reports system reviewed and no additional complaints, except as documented Integumentary/Breasts Skin/Breast: Reports system reviewed and no additional complaints, except as documented Neurologic Neurologic: Reports system reviewed and no additional complaints, except as documented Psychiatric Psychiatric: Reports system reviewed and no additional complaints, except as documented Hematologic/Lymphatic On Anticoagulants: Yes Allergic/Immunologic Allergic/Immunologic: Reports system reviewed and no additional complaints, except as documented Patient History Medical History Hearing loss Hypothyroid Paroxysmal A-fib Social History Smoking Status: Former smoker Smoking Status: Former smoker alcohol intake frequency: 0-2 drinks per day Substance Use Type: does not use Exam Initial Vital Signs Initial Vital Signs: Vital Signs Temperature 97.1 F L 01/30/21 11:45 Pulse Rate 104 H 01/30/21 11:45 Respiratory Rate 14 01/30/21 11:45 Pulse Oximetry 99 01/30/21 11:45 Const General: cooperative and healthy appearing HENMT Head: normal to inspection and normocephalic Eyes General: appearance normal, both eyes and all related structures Resp Auscultation: clear to auscultation bilaterally Cardio Rate: tachycardic Rhythm: abnormal rhythm GI Inspection: normal to inspection Skin General: no rashes or lesions noted Neuro General: patient alert, patient awake and patient oriented x3 Extrem General: normal to inspection, capillary refill normal and No edema Psych Appearance: grossly normal and well kempt Procedures Cardioversion Consent Signed: Yes Indication: AFib with RVR Stability: Stable Number of attempts (shocks): 1 Joules used: 120 Cardiac rhythm post-cardioversion: Sinus bradycardia Procedural Sedation Consent signed: Yes Time out performed: Yes Indication: cardioversion Presedation Evaluation: See HPI ASA Class: II Mallampati Airway Classification: Class II Preparation: cardiac specialist applied, pulse oximeter, capnometry used, leroy pplemental O2 applied, suction/airway equipment at bedside and IV secured Fentanyl: IV Fentanyl dose (mcg): 12 IV Propofol dose (mg): 50 Intraservice time/total sedation time (min): 10 ED Sedation Level: Moderate (Concious) Patient Tolerated Procedure: Well Complications: none Course Orders Ordered: ED Orders 01/30/21 11:43 XR chest 1V Stat EKG-12 Lead Stat 01/30/21 11:53 COVID19 -Nasal swab/Pre-Proc Stat 01/30/21 11:55 Complete Blood Count AUTO DIFF Stat Comprehensive Metabolic Panel Stat Lipase Stat Magnesium Stat Thyroid Stimulating Hormone Stat Troponin & CK Cardiac Panel Stat 01/30/21 12:04 RT Consult Eval and Treat Now 01/30/21 12:32 EKG-12 Lead Stat Sodium Chloride (Normal Saline 0.9%) 1,000 mls @ 125 mls/hr IV CONT ALIREZA Last Admin: 01/30/21 12:53 Dose: 125 mls/hr Documented by: AUPDIKE Discontinued Medications Fentanyl (Fentanyl 100 Mcg/2 Ml Inj) 12.5 mcg IV NOW ONE Stop: 01/30/21 12:04 Last Admin: 01/30/21 13:28 Dose: 12.5 mcg Documented by: GIO Propofol (Propofol 200 Mg/20 Ml Vial) 100 mg IV NOW ONE Stop: 01/30/21 12:04 Last Admin: 01/30/21 13:35 Dose: 50 mg Documented by: GIO Vital Signs Vital signs: Vital Signs - 8 hr 01/30/21 11:45 01/30/21 11:53 01/30/21 11:55 Temperature 97.1 F L Pulse Rate 104 H 98 H 113 H Respiratory Rate 14 26 H 22 Blood Pressure 108/78 Pulse Oximetry 99 98 98 01/30/21 12:00 01/30/21 12:15 01/30/21 12:30 Temperature Pulse Rate 107 H 93 H 92 H Respiratory Rate 26 H 24 20 Blood Pressure 128/88 107/75 Pulse Oximetry 98 97 96 01/30/21 12:45 01/30/21 13:00 01/30/21 13:30 Temperature Pulse Rate 92 H 88 100 H Respiratory Rate 20 24 Blood Pressure 114/79 Pulse Oximetry 98 98 98 01/30/21 13:32 01/30/21 13:34 01/30/21 13:36 Temperature Pulse Rate 111 H 102 H 105 H Respiratory Rate 28 H 24 19 Blood Pressure 106/72 122/80 Pulse Oximetry 98 98 100 01/30/21 13:38 01/30/21 13:40 01/30/21 13:42 Temperature Pulse Rate 34 L 37 L 47 L Respiratory Rate 17 25 H 21 Blood Pressure 131/71 125/64 118/65 Pulse Oximetry 98 99 100 01/30/21 13:44 01/30/21 13:46 01/30/21 13:47 Temperature Pulse Rate 42 L 47 L 42 L Respiratory Rate 20 22 24 Blood Pressure 112/63 129/68 Pulse Oximetry 100 100 98 01/30/21 13:48 01/30/21 13:52 Temperature Pulse Rate 40 L 87 Respiratory Rate 18 22 Blood Pressure 106/58 L Pulse Oximetry 97 MDM - Arrhythmia/Palpitations Medical Records Attestation: I reviewed the patient's medical records. Lab Data Attestation: I reviewed the patient's lab results. Result diagrams: 01/30/21 11:55 01/30/21 11:55 Labs: Lab Results 01/30/21 01/30/21 01/30/21 Range/Units 11:53 11:55 11:55 WBC 6.1 (4.5-11.0) X10^3/uL RBC 4.89 (4.5-5.9) X10^6/uL Hgb 15.4 (13.5-17.5) g/dL Hct 45.3 (41-53) % MCV 92.7 (80-100) fL MCH 31.4 (26-34) PG MCHC 33.9 (30-36) % RDW 13.7 (11.6-14.8) % Plt Count 208 (150-400) X10^3/uL Neut % (Auto) 72.4 (50-75) % Lymph % (Auto) 13.2 L (25-40) % [place] % (Auto) 9.6 (3-14) % Eos % (Auto) 3.5 (2-4) % Baso % (Auto) 1.3 (0-2) % Neut # (Auto) 4400 (4517-0142) /uL Lymph # (Auto) 800 L (6130-2654) /uL [place] # (Auto) 600 (0-900) /uL Eos # (Auto) 200 (0-450) /uL Baso # (Auto) 100 (0-100) /uL Sodium 135 L (137-145) mmol/L Potassium 4.6 (3.4-5.1) mmol/L Chloride 102 (98-107) mmol/L Carbon Dioxide 25 (22-32) mmol/L BUN 12 (9-20) mg/dL Creatinine 0.54 L (0.66-1.25) mg/dL Estimated GFR > 60.0 (>60) mL/min BUN/Creatinine Ratio 22.2 H (6-22) Glucose 94 (80-110) mg/dL Calcium 9.5 (8.4-10.2) mg/dL Magnesium 2.0 (1.6-2.3) mg/dL Total Bilirubin 0.6 (0.2-1.3) mg/dL AST 41 (17-59) IU/L ALT 36 (<50) IU/L Alkaline Phosphatase 65 (38-126) U/L Total Creatine Kinase 82 (55-170) U/L CK-MB (CK-2) TNP CK-MB (CK-2) Rel Index TNP Troponin I < 0.012 (0.01-0.034) ng/mL Total Protein 7.2 (6.3-8.2) g/dL Albumin 4.4 (3.5-5.0) g/dL Globulin 2.8 (1.7-4.1) g/dL Albumin/Globulin Ratio 1.6 (1.0-2.8) Lipase 96 (23-300) U/L TSH (0.47-4.68) uIU/mL SARS-CoV-2 (PCR) Negative (Negative) 01/30/21 Range/Units 11:55 WBC (4.5-11.0) X10^3/uL RBC (4.5-5.9) X10^6/uL Hgb (13.5-17.5) g/dL Hct (41-53) % MCV (80-100) fL MCH (26-34) PG MCHC (30-36) % RDW (11.6-14.8) % Plt Count (150-400) X10^3/uL Neut % (Auto) (50-75) % Lymph % (Auto) (25-40) % [place] % (Auto) (3-14) % Eos % (Auto) (2-4) % Baso % (Auto) (0-2) % Neut # (Auto) (5279-4074) /uL Lymph # (Auto) (7262-8812) /uL [place] # (Auto) (0-900) /uL Eos # (Auto) (0-450) /uL Baso # (Auto) (0-100) /uL Sodium (137-145) mmol/L Potassium (3.4-5.1) mmol/L Chloride (98-107) mmol/L Carbon Dioxide (22-32) mmol/L BUN (9-20) mg/dL Creatinine (0.66-1.25) mg/dL Estimated GFR (>60) mL/min BUN/Creatinine Ratio (6-22) Glucose (80-110) mg/dL Calcium (8.4-10.2) mg/dL Magnesium (1.6-2.3) mg/dL Total Bilirubin (0.2-1.3) mg/dL AST (17-59) IU/L ALT (<50) IU/L Alkaline Phosphatase (38-126) U/L Total Creatine Kinase (55-170) U/L CK-MB (CK-2) CK-MB (CK-2) Rel Index Troponin I (0.01-0.034) ng/mL Total Protein (6.3-8.2) g/dL Albumin (3.5-5.0) g/dL Globulin (1.7-4.1) g/dL Albumin/Globulin Ratio (1.0-2.8) Lipase (23-300) U/L TSH 0.399 L (0.47-4.68) uIU/mL SARS-CoV-2 (PCR) (Negative) Imaging Data Chest x-ray: Radiologist's Impresson: [address] [id number] ReportSigned Patient: Gael Du RMR#: [id number]: 3Acct:[id number]/Sex: 80 / MDate of Service: 01/30/21Loc: EDAccession Number: [id number] Procedure: XR chest 1V Ordering Provider: Zay Hernandez D.O. PROCEDURE: XR CHEST 1V INDICATIONS: chest pain TECHNIQUE: One view of the chest was acquired. COMPARISON: [facility], CT, CT CHEST WO CON, 06/27/2020, 15:06. [facility], CR, XR CHEST 1V, 11/16/2020, 16:38. FINDINGS: Surgical changes and devices: Surgical clips projecting over the mediastinum are stable. Lungs and pleura: Lungs are clear of acute opacities. Small nodular densities in the left lung base are not significantly changed compared to prior exam. No pleural effusions or pneumothorax. Mediastinum: Mediastinal contours appear normal. Heart size is normal. Bones and chest wall: No suspicious bony lesions. Overlying soft tissues ximena ear unremarkable. IMPRESSION: No acute cardiopulmonary disease process. Dictated by: Nida Jeffery MD, PhD on 01/30/2021 at 12:30 Approved by: Nida Jeffery MD, PhD on 01/30/2021 at 12:32 ECG Data Attestation: I personally reviewed and interpreted this ECG as follows: Interpretation: Atrial fibrillation Left axis deviation Ventricular rate [address] T wave changes Post cardioversion EKG Sinus bradycardia Ventricular rate of 44 Left axis deviation Normal QRS Normal QTC No ST T wave changes MDM Narrative Medical decision making narrative: Patient is a history of atrial fibrillation. Has been anticoagulated on a daily basis for at least the past 4 weeks if not longer. He is scheduled to have an ablation done coming up next month. His here for less than 24 hours of AFib. He is normally bradycardic with a heart rate in the 40s. He was sedated and cardioverted after signing the consent form without incident. He is alert oriented x3. Will discharge home and follow-up with Cardiology. Discharge Plan Departure Patient Disposition: Home Clinical Impression: Atrial fibrillation Instructions: DI for Cardioversion, DI for Atrial Fibrillation Activity Restrictions/Additional Instructions: Recommend you continue all of your medications as directed. Keep all of your scheduled medical appointments. Return to the emergency department for any new or worsening symptoms Prescriptions: No Action Eliquis 5 mg tablet 5 mg PO BID RF: 0 levothyroxine 150 mcg capsule 150 mcg PO DAILY RF: 0 metoprolol tartrate 25 mg tablet 25 mg PO BID PRN (Reason: afib w/ RVR) RF: 0 Referrals: Ramiro Granger MD [Primary Care Provider] -
[2021-01-30 12:14] LABS: Add Manual Diff / Slide Review NO; Basophils Absolute Auto 100 /uL (0-100); Basophils Percent Auto 1.3 % (0-2); Eosinophils Absolute Auto 200 /uL (0-450); Eosinophils Percent Auto 3.5 % (2-4); Hematocrit 45.3 % (41-53); Hemoglobin 15.4 g/dL (13.5-17.5); Lymphocytes Absolute Auto 800 /uL (1100-4500); Lymphocytes Percent Auto 13.2 % (25-40); Mean Corpuscular HGB Conc 33.9 % (30-36); Mean Corpuscular Hemoglobin 31.4 PG (26-34); Mean Corpuscular Volume 92.7 fL (80-100); Monocytes Absolute Auto 600 /uL (0-900); Monocytes Percent Auto 9.6 % (3-14); Neutrophils Absolute Auto 4400 /uL (1500-7000); Neutrophils Percent Auto 72.4 % (50-75); Platelet Count 208 X10^3/uL (150-400); Red Blood Cell Count 4.89 X10^6/uL (4.5-5.9); Red Cell Distribution Width 13.7 % (11.6-14.8); White Blood Cell Count 6.1 X10^3/uL (4.5-11.0)
[2021-01-30] MEDS: SODIUM CHLORIDE 0.9% 1,000 ML 125 ML IV (12:53)
[2021-01-30 13:05] LABS: COVID19 -Nasal RAPID Negative (Negative)
[2021-01-30 13:15] LABS: Alanine Aminotransferase 36 IU/L (<50); Albumin 4.4 g/dL (3.5-5.0); Albumin Globulin Ratio 1.6 (1.0-2.8); Alkaline Phosphatase 65 U/L (38-126); Aspartate Aminotransferase 41 IU/L (17-59); BUN Creatinine Ratio 22.2 (6-22); Bilirubin Total 0.6 mg/dL (0.2-1.3); Blood Urea Nitrogen 12 mg/dL (9-20); Calcium 9.5 mg/dL (8.4-10.2); Carbon Dioxide 25 mmol/L (22-32); Chloride 102 mmol/L (98-107); Creatine Kinase 82 U/L (55-170); Estimated Glomerular Filt Rate > 60.0 mL/min (>60); Globulin 2.8 g/dL (1.7-4.1); Glucose 94 mg/dL (80-110); HEMOLYSIS < 15 (0-50); Lipase 96 U/L (23-300); Potassium 4.6 mmol/L (3.4-5.1); Sodium 135 mmol/L (137-145); Total Protein 7.2 g/dL (6.3-8.2)
[2021-01-30 13:27] LABS: Troponin I < 0.012 ng/mL (0.01-0.034)
[2021-01-30] MEDS: fentaNYL 100 MCG/2 ML INJ 12.5 MCG IV (13:28)
[2021-01-30 13:31] LABS: Thyroid Stimulating Hormone 0.399 uIU/mL (0.47-4.68)
[2021-01-30] MEDS: propofoL 200 MG/20 ML VIAL 100 MG IV (13:35)
--- NOTE | 2021-01-30 13:53 | RT ---
Called to bedside for Cardioversion. Bag mask unit with suction on and functional. Pt pauly well, no distress noted and etco2 34 on 2 lpm nc. Pt weaned down to room air, awake and alert. Released by Rn and MD Hernandez
== END 2021-01-30 14:35 | disposition home or self-care (01) ==
PROVIDERS: Emergency Provider Emergency Medicine; PCP Family Medicine
DX: I48.91 Unspecified atrial fibrillation (principal); Z79.01 Long term (current) use of anticoagulants; R07.9 Chest pain, unspecified; Z20.822 Contact with and (suspected) exposure to COVID-19
CPT/HCPCS: 36415; 71045; 80053; 82550; 83690; 83735; 84443; 84484; 85025; 87635; 92960; 93005; 93010; 96360; 96361; 99152; 99285; C9803; J2704; J3010

== ENCOUNTER 2021-03-02 10:33 | Emergency (ER) | payer MEDICARE, OTHER, SELFPAY ==
[2021-03-02] VITALS (38 sets, daily range): BP systolic 99–170; BP diastolic 59–100; PULSE 66–132; RESP 14–36; TEMP 36.8; O2SAT 92–99; BMI 23.1
--- NOTE | 2021-03-02 10:44 | DI.RAD.S_ITS ---
PROCEDURE: XR CHEST 1V INDICATIONS: chest pain TECHNIQUE: One view of the chest was acquired. COMPARISON: [facility], CT, CT ANGIO CHEST, 02/05/2021, 9:23. [facility], CR, XR CHEST 1V, 01/30/2021, 11:56. FINDINGS: Surgical changes and devices: Mediastinal surgical clips remain unchanged the prior exam. Lungs and pleura: Right basilar atelectasis and/or infiltrate noted associated with blunting the right costophrenic angle. Mediastinum: Mediastinal contours appear normal. Heart size is normal. Bones and chest wall: No suspicious bony lesions. Overlying soft tissues appear unremarkable. IMPRESSION: Small right pleural effusion associated with atelectasis and infiltrate Approved by: Juan Jose Montalvo M.D. on 03/02/2021 at 10:46
--- NOTE | 2021-03-02 10:47 | ED.GENADULT ---
HPI - General Adult General Stated complaint: Nausea, SOB, High bp/HR Time Seen by Provider: 03/02/21 10:46 Related Data Home Medications Medication Instructions Recorded Confirmed apixaban 5 mg tablet (Eliquis) 5 mg PO BID 07/31/20 01/30/21 levothyroxine 150 mcg capsule 150 mcg PO DAILY 07/31/20 01/30/21 metoprolol tartrate 25 mg tablet 25 mg PO BID PRN 01/30/21 01/30/21 Allergies Allergy/AdvReac Type Severity Reaction Status Date / Time sulfamethoxazole Allergy Severe Swelling Verified 03/02/21 10:46 [From Bactrim] of Lip/Tongue/Throat trimethoprim [From Bactrim] Allergy Severe Swelling Verified 03/02/21 10:46 of Lip/Tongue/Throat Patient History Medical History Hearing loss Hypothyroid Paroxysmal A-fib Social History Smoking Status: Former smoker Smoking Status: Former smoker alcohol intake frequency: 0-2 drinks per day Substance Use Type: does not use Course Orders Ordered: ED Orders 03/02/21 10:44 XR chest 1V Stat Complete Blood Count AUTO DIFF Stat Comprehensive Metabolic Panel Stat Lipase Stat Troponin & CK Cardiac Panel Stat EKG-12 Lead Stat Discharge Plan Departure Prescriptions: No Action Eliquis 5 mg tablet 5 mg PO BID RF: 0 levothyroxine 150 mcg capsule 150 mcg PO DAILY RF: 0 metoprolol tartrate 25 mg tablet 25 mg PO BID PRN (Reason: afib w/ RVR) RF: 0 Referrals: Ramiro Granger MD [Primary Care Provider] -
[2021-03-02 11:07] LABS: Add Manual Diff / Slide Review NO; Basophils Absolute Auto 0 /uL (0-100); Basophils Percent Auto 0.8 % (0-2); Eosinophils Absolute Auto 200 /uL (0-450); Eosinophils Percent Auto 2.9 % (2-4); Hematocrit 42.2 % (41-53); Hemoglobin 14.5 g/dL (13.5-17.5); Lymphocytes Absolute Auto 500 /uL (1100-4500); Lymphocytes Percent Auto 8.8 % (25-40); Mean Corpuscular HGB Conc 34.4 % (30-36); Mean Corpuscular Hemoglobin 31.6 PG (26-34); Mean Corpuscular Volume 91.9 fL (80-100); Monocytes Absolute Auto 700 /uL (0-900); Monocytes Percent Auto 11.8 % (3-14); Neutrophils Absolute Auto 4500 /uL (1500-7000); Neutrophils Percent Auto 75.7 % (50-75); Platelet Count 194 X10^3/uL (150-400); Red Blood Cell Count 4.59 X10^6/uL (4.5-5.9); Red Cell Distribution Width 13.2 % (11.6-14.8); White Blood Cell Count 5.9 X10^3/uL (4.5-11.0)
--- NOTE | 2021-03-02 11:16 | ED_ITS ---
HPI - General Adult General Chief complaint: Chest Pain Stated complaint: Nausea, SOB, High bp/HR Time Seen by Provider: 03/02/21 10:46 Source: patient Mode of arrival: Ambulatory Limitations: no limitations History of Present Illness HPI narrative: 80-year-old gentleman with a history of paroxysmal atrial fibrillation with multiple prior cardioversions and cardiac ablation done at [facility] on 02/26 presents this morning with recurrent atrial fibrillation onset approximately 830 while he was sitting reading paper. He noted at 8:30 a.m. that he abruptly became mildly nauseated slightly lightheaded slightly short of breath checked his heart rate and noted it to be rapid and irregular. He describes ?an odd feeling in the chest? and mild nausea but no overt pain. He states that since the ablation 3 days ago he is actually been doing quite well. He has had no significant side effects or consequences after the procedure. No fevers, cough, chills, abdominal pain, vomiting, diarrhea, skin changes, chest pain, orthopnea or dyspnea. Related Data Home Medications Medication Instructions Recorded Confirmed apixaban 5 mg tablet (Eliquis) 5 mg PO BID 07/31/20 01/30/21 levothyroxine 150 mcg capsule 150 mcg PO DAILY 07/31/20 01/30/21 metoprolol tartrate 25 mg tablet 25 mg PO BID PRN 01/30/21 01/30/21 Allergies Allergy/AdvReac Type Severity Reaction Status Date / Time sulfamethoxazole Allergy Severe Swelling Verified 03/02/21 10:46 [From Bactrim] of Lip/Tongue/Throat trimethoprim [From Bactrim] Allergy Severe Swelling Verified 03/02/21 10:46 of Lip/Tongue/Throat Review of Systems Review of Systems Narrative: Remainder of complete review of systems is otherwise unremarkable except for that included in the HPI. Patient History Medical History (Updated 03/02/21 @ 14:31 by Ameena Velasco MD) Coarctation of aorta Hearing loss Hypothyroid Paroxysmal A-fib Surgical History (Updated 03/02/21 @ 11:28 by Ameena Velasco MD) H/O hernia repair H/O transurethral resection of prostate History of cardiac radiofrequency ablation Social History Smoking Status: Former smoker Smoking Status: Former smoker alcohol intake frequency: 0-2 drinks per day Substance Use Type: does not use Exam Narrative Exam Narrative: General: Healthy appearing, in no acute distress. Able to give a complete and coherent history. Well-nourished well-developed HEENT: Moist mucous membranes, normal sclera with reactive pupils, Neck: No JVD, supple Respiratory: Lungs are clear to auscultation, no wheezing no rales no rhonchi. Full and symmetrical air movement Cardiac: Mild tachycardia with a regular rate and rhythm, no murmurs no bruits Abdomen: Soft, nontender, good bowel tones, no flank pain Skin: Warm and dry, no rashes Neurologic: Grossly neurologically intact with no obvious asymmetries or abnormalities Extremities: No trauma, well perfused Psych: Cooperative, appropriate insight and affect Initial Vital Signs Initial Vital Signs: Vital Signs Pulse Rate 78 03/02/21 10:37 Pulse Oximetry 98 03/02/21 10:37 Course Orders Ordered: ED Orders 03/02/21 10:44 XR chest 1V Stat EKG-12 Lead Stat 03/02/21 10:52 Complete Blood Count AUTO DIFF Stat Comprehensive Metabolic Panel Stat Lipase Stat Troponin & CK Cardiac Panel Stat Discontinued Medications Metoprolol Tartrate (Metoprolol Tartrate 5 Mg/5 Ml Inj) 5 mg IV Q5M [facility] Stop: 03/02/21 13:11 Last Admin: 03/02/21 13:29 Dose: 5 mg Documented by: Admin: 03/02/21 13:23 Dose: 5 mg Documented by: Admin: 03/02/21 13:18 Dose: 5 mg Documented by: RAMAN Metoprolol Tartrate (Metoprolol Ir 25 Mg Tablet) 25 mg PO NOW ONE Stop: 03/02/21 13:33 Last Admin: 03/02/21 14:11 Dose: 25 mg Documented by: MURALI Vital Signs Vital signs: Vital Signs - 8 hr 03/02/21 10:37 03/02/21 10:38 03/02/21 10:40 Temperature 98.3 F Pulse Rate 78 74 66 Respiratory Rate 14 Blood Pressure 147/90 H 147/90 H Pulse Oximetry 98 98 98 03/02/21 11:00 03/02/21 11:01 03/02/21 11:30 Temperature Pulse Rate 118 H 131 H Respiratory Rate 24 24 30 H Blood Pressure 140/71 Pulse Oximetry 97 96 95 03/02/21 11:31 03/02/21 12:00 03/02/21 12:01 Temperature Pulse Rate 115 H 114 H 122 H Respiratory Rate 30 H 27 H 30 H Blood Pressure 157/62 H 103/72 Pulse Oximetry 96 99 96 03/02/21 12:30 03/02/21 13:00 03/02/21 13:15 Temperature Pulse Rate 115 H 108 H 132 H Respiratory Rate 27 H 18 19 Blood Pressure 116/71 130/76 Pulse Oximetry 97 97 95 03/02/21 13:17 03/02/21 13:20 03/02/21 13:21 Temperature Pulse Rate 127 H 105 H 108 H Respiratory Rate 16 17 14 Blood Pressure 151/78 H 141/82 H Pulse Oximetry 98 98 98 03/02/21 13:25 03/02/21 13:29 03/02/21 13:30 Temperature Pulse Rate 104 H 104 H Respiratory Rate 20 19 Blood Pressure 141/75 H 128/77 Pulse Oximetry 98 97 Medical Decision Making Lab Data Result diagrams: 03/02/21 10:52 03/02/21 10:52 Labs: Lab Results 03/02/21 03/02/21 Range/Units 10:52 10:52 WBC 5.9 (4.5-11.0) X10^3/uL RBC 4.59 (4.5-5.9) X10^6/uL Hgb 14.5 (13.5-17.5) g/dL Hct 42.2 (41-53) % MCV 91.9 (80-100) fL MCH 31.6 (26-34) PG MCHC 34.4 (30-36) % RDW 13.2 (11.6-14.8) % Plt Count 194 (150-400) X10^3/uL Neut % (Auto) 75.7 H (50-75) % Lymph % (Auto) 8.8 L (25-40) % [place] % (Auto) 11.8 (3-14) % Eos % (Auto) 2.9 (2-4) % Baso % (Auto) 0.8 (0-2) % Neut # (Auto) 4500 (0607-4910) /uL Lymph # (Auto) 500 L (4067-2836) /uL [place] # (Auto) 700 (0-900) /uL Eos # (Auto) 200 (0-450) /uL Baso # (Auto) 0 (0-100) /uL Sodium 133 L (137-145) mmol/L Potassium 4.4 (3.4-5.1) mmol/L Chloride 101 (98-107) mmol/L Carbon Dioxide 26 (22-32) mmol/L BUN 9 (9-20) mg/dL Creatinine 0.46 L (0.66-1.25) mg/dL Estimated GFR > 60.0 (>60) mL/min BUN/Creatinine Ratio 19.6 (6-22) Glucose 112 H (80-110) mg/dL Calcium 9.3 (8.4-10.2) mg/dL Total Bilirubin 0.8 (0.2-1.3) mg/dL AST 34 (17-59) IU/L ALT 28 (<50) IU/L Alkaline Phosphatase 70 (38-126) U/L Total Creatine Kinase 42 L (55-170) U/L CK-MB (CK-2) TNP CK-MB (CK-2) Rel Index TNP Troponin I 0.055 H (0.01-0.034) ng/mL Total Protein 6.8 (6.3-8.2) g/dL Albumin 3.9 (3.5-5.0) g/dL Globulin 2.9 (1.7-4.1) g/dL Albumin/Globulin Ratio 1.3 (1.0-2.8) Lipase 72 (23-300) U/L Imaging Data Chest x-ray: Radiologist's Impression: FINDINGS: Surgical changes and devices: Mediastinal surgical clips remain unchanged the prior exam. Lungs and pleura: Right basilar atelectasis and/or infiltrate noted associated with blunting the right costophrenic angle. Mediastinum: Mediastinal contours appear normal. Heart size is normal. Bones and chest wall: No suspicious bony lesions. Overlying soft tissues appear unremarkable. IMPRESSION: Small right pleural effusion associated with atelectasis and infiltrate Approved by: Juan Jose Montalvo M.D. on 03/02/2021 at 10:46 ECG Data Interpretation: Atrial fibrillation at a rate of 117 Occasional PVC Leftward axis with left anterior fascicular block MDM Narrative Medical decision making narrative: 80-year-old gentleman with a history of paroxysmal atrial fibrillation status post ablation on February 26. Had recurrent episode of atrial fibrillation starting at about 8:00 a.m. this morning. No evidence of infection, acute coronary syndrome or congestive heart failure. Rate was moderately complete true old with IV metoprolol and oral metoprolol. Care is reviewed with Cardiology. Recommendation was to continue with rate control while allowing the myocardium to heal after the ablation done 3 days ago. Cardiology office will contact the patient tomorrow with further instructions. I did instruct him to continue his apixaban. He is safe for home discharge at this time Discharge Plan Departure Patient Disposition: Home Clinical Impression: AF (paroxysmal atrial fibrillation) Instructions: DI for Atrial Fibrillation Activity Restrictions/Additional Instructions: Thank you for coming in today I am sorry that your having this recurrent episode of atrial fibrillation after your ablation on the . At this time, there is no evidence of congestive heart failure or heart attack. You have been given IV and oral metoprolol to slow your rate while urine the emergency department. I have spoken with Dr. Irving, sewing machine operator semiautomatic on-call. He has electronically transmitted a prescription for metoprolol to 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 Please pick this up and begin twice a day dosing. Please check your heart rate and rhythm before taking the metoprolol. If you are below 60 or are clearly in a regular sinus rhythm you do not need to continue the metoprolol The cardiology office will contact you tomorrow with further instructions If you have worsening symptoms please return to the ER I hope that this is a bit of mild inflammation causing this atrial fibrillation and once that resolves the cardiac ablation is affective for you Prescriptions: No Action Eliquis 5 mg tablet 5 mg PO BID RF: 0 levothyroxine 150 mcg capsule 150 mcg PO DAILY RF: 0 metoprolol tartrate 25 mg tablet 25 mg PO BID PRN (Reason: afib w/ RVR) RF: 0 Referrals: Ramiro Granger MD [Primary Care Provider] -
[2021-03-02 11:21] LABS: Alanine Aminotransferase 28 IU/L (<50); Albumin 3.9 g/dL (3.5-5.0); Albumin Globulin Ratio 1.3 (1.0-2.8); Alkaline Phosphatase 70 U/L (38-126); Aspartate Aminotransferase 34 IU/L (17-59); BUN Creatinine Ratio 19.6 (6-22); Bilirubin Total 0.8 mg/dL (0.2-1.3); Blood Urea Nitrogen 9 mg/dL (9-20); Calcium 9.3 mg/dL (8.4-10.2); Carbon Dioxide 26 mmol/L (22-32); Chloride 101 mmol/L (98-107); Creatine Kinase 42 U/L (55-170); Estimated Glomerular Filt Rate > 60.0 mL/min (>60); Globulin 2.9 g/dL (1.7-4.1); Glucose 112 mg/dL (80-110); HEMOLYSIS < 15 (0-50); Lipase 72 U/L (23-300); Potassium 4.4 mmol/L (3.4-5.1); Sodium 133 mmol/L (137-145); Total Protein 6.8 g/dL (6.3-8.2)
[2021-03-02 11:32] LABS: Troponin I 0.055 ng/mL (0.01-0.034)
[2021-03-02] MEDS: METOPROLOL TARTRATE 5 MG/5 ML INJ IV ×3 (13:18→13:29)
[2021-03-02] MEDS: METOPROLOL IR 25 MG TABLET PO (14:11)
== END 2021-03-02 14:40 | disposition home or self-care (01) ==
PROVIDERS: Emergency Provider Emergency Medicine; PCP Family Medicine
DX: I48.0 Paroxysmal atrial fibrillation (principal)
CPT/HCPCS: 36415; 71045; 80053; 82550; 83690; 84484; 85025; 93005; 93010; 99284

== ENCOUNTER 2022-11-12 18:02 | Emergency (ER) | payer MEDICARE, OTHER, SELFPAY ==
[2022-11-12 18:13] VITALS: BP 129/72; PULSE 102; RESP 18; TEMP 36.1; O2SAT 98; BMI 22.8
--- NOTE | 2022-11-12 18:19 | DI.RAD.S_ITS ---
PROCEDURE: XR CHEST 1V INDICATIONS: chest pain TECHNIQUE: One view of the chest was acquired. COMPARISON: [facility], CR, XR CHEST 1V, 03/02/2021, 11:12. [facility], CR, XR CHEST 1V, 01/30/2021, 11:56. FINDINGS: Surgical changes and devices: Metal clips project over the upper mediastinum as before. Lungs and pleura: No definite suspicious focal airspace opacity. No pleural effusion or pneumothorax. Lungs appear hyperinflated as before. Mediastinum: Mediastinal and hilar contours appear similar to before. Bones and chest wall: No suspicious bony lesions. Gaseous distension of upper abdomen:, nonspecific. IMPRESSION: No acute cardiopulmonary abnormality. Dictated by: Serafin Reyes M.D. on 11/12/2022 at 19:20 Approved by: Serafin Reyes M.D. on 11/12/2022 at 19:21
[2022-11-12 18:45] LABS: INR 1.2 (0.9-1.3); Prothrombin Time 13.3 SECONDS (10.1-12.7)
[2022-11-12 18:48] LABS: PTT Partial Thromboplastin Tim 36 SECONDS (26-36)
[2022-11-12 18:51] LABS: Alanine Aminotransferase 29 IU/L (<50); Albumin 4.3 g/dL (3.5-5.0); Albumin Globulin Ratio 1.6 (1.0-2.8); Alkaline Phosphatase 60 U/L (38-126); Aspartate Aminotransferase 46 IU/L (17-59); BUN Creatinine Ratio 23.7 (6-22); Bilirubin Total 0.5 mg/dL (0.2-1.3); Blood Urea Nitrogen 14 mg/dL (9-20); Calcium 8.9 mg/dL (8.4-10.2); Carbon Dioxide 28 mmol/L (22-32); Chloride 101 mmol/L (98-107); Creatine Kinase 101 U/L (55-170); Estimated Glomerular Filt Rate > 60 mL/min (>60); Globulin 2.7 g/dL (1.7-4.1); Glucose 127 mg/dL (80-110); HEMOLYSIS < 15 (0-50); Lipase 136 U/L (23-300); Magnesium 2.2 mg/dL (1.6-2.3); Potassium 4.3 mmol/L (3.4-5.1); Sodium 136 mmol/L (137-145)
[2022-11-12 19:03] LABS: NT-proBNP (BNP-Adult 18+) 817 pg/mL (<450); Troponin I < 0.012 ng/mL (0.01-0.034)
[2022-11-12 19:05] LABS: Add Manual Diff / Slide Review NO; Basophils Absolute Auto 0 /uL (0-100); Basophils Percent Auto 0.7 % (0-2); Eosinophils Absolute Auto 100 /uL (0-450); Hematocrit 41.6 % (41-53); Hemoglobin 14.5 g/dL (13.5-17.5); Lymphocytes Absolute Auto 800 /uL (1100-4500); Lymphocytes Percent Auto 13.7 % (25-40); Mean Corpuscular HGB Conc 34.9 % (30-36); Mean Corpuscular Hemoglobin 31.9 PG (26-34); Mean Corpuscular Volume 91.6 fL (80-100); Monocytes Absolute Auto 500 /uL (0-900); Monocytes Percent Auto 9.8 % (3-14); Neutrophils Absolute Auto 4100 /uL (1500-7000); Neutrophils Percent Auto 73.8 % (50-75); Platelet Count 230 X10^3/uL (150-400); Red Blood Cell Count 4.54 X10^6/uL (4.5-5.9); Red Cell Distribution Width 13.3 % (11.6-14.8); White Blood Cell Count 5.5 X10^3/uL (4.5-11.0)
[2022-11-12 19:06] LABS: CKMB % Relative Index 5.1 % (1.5-5.0); Creatine Kinase MB 5.13 ng/mL (<2.37)
--- NOTE | 2022-11-12 19:08 | ED_ITS ---
HPI - Arrhythmia/Palpitations General Chief Complaint: Arrhythmia/Palpitations Stated Complaint: A-fib Time Seen by Provider: 11/12/22 19:06 Mode of arrival: Family Vehicle History of Present Illness HPI narrative: Patient is a 82-year-old male history paroxysmal atrial fibrillation currently on Xarelto but was previously on Eliquis. He was due to have an ablation with Dr. Bowie on November [address] Bowie cancel the ablation when he saw something in atrium and he was started on 20 mg of Xarelto. Patient reports that today he started feeling very weak and tired. Not necessarily short of breath no having palpitations or chest discomfort. He is found to be in AFib, heart rate 80s to 120. He reports that he does not normally take metoprolol or any other rate-controlling medications secondary to bradycardia when he is in sinus. Related Data Home Medications Medication Instructions Recorded Confirmed levothyroxine 150 mcg capsule 150 mcg PO DAILY 07/31/20 01/30/21 metoprolol tartrate 25 mg tablet 25 mg PO BID PRN afib w/ RVR 01/30/21 01/30/21 rivaroxaban 20 mg tablet (Xarelto) 20 mg PO DAILY 11/12/22 11/12/22 rivaroxaban 20 mg tablet (Xarelto) mg 11/12/22 Previous Rx's Medication Instructions Recorded metoprolol succinate 25 mg 25 mg PO BID #30 tabs 11/12/22 tablet,extended release 24 hr Allergies Allergy/AdvReac Type Severity Reaction Status Date / Time sulfamethoxazole Allergy Severe Swelling Verified 11/12/22 18:18 [From Bactrim] of Lip/Tongue/Throat trimethoprim [From Bactrim] Allergy Severe Swelling Verified 11/12/22 18:18 of Lip/Tongue/Throat Review of Systems Review of Systems ROS Unobtainable: All systems reviewed & are unremarkable except as noted in HPI and below Patient History Medical History Coarctation of aorta Hearing loss Hypothyroid Paroxysmal A-fib Surgical History H/O hernia repair H/O transurethral resection of prostate History of cardiac radiofrequency ablation Social History Smoking Status: Former smoker Smoking Status: Former smoker alcohol intake frequency: 0-2 drinks per day Substance Use Type: does not use Exam Initial Vital Signs Initial Vital Signs: Vital Signs Temperature 97 F L 11/12/22 18:13 Pulse Rate 102 H 11/12/22 18:13 Respiratory Rate 18 11/12/22 18:13 Blood Pressure 129/72 11/12/22 18:13 Pulse Oximetry 98 11/12/22 18:13 Oxygen Delivery Method Room Air 11/12/22 18:13 GENERAL: Alert very kind well-appearing 82-year-old male HEENT: Head atraumatic,EOMI, pupils reactive, face symmetric, moist mucous membranes CARDIOVASCULAR: Irregularly irregular RESPIRATORY: Breath sounds equal bilaterally, no wheezes rales or rhonchi. ABDOMEN: Soft, nontender. Normoactive bowel sounds all 4 quadrants. No guarding or rebound. EXTREMITIES: Normal range of motion, no clubbing or edema. Neurovascularly intact NEUROLOGICAL: Alert and oriented x4. SKIN: Warm, dry, no laceration, no petechiae, no rashes or lesions. Course Orders Ordered: ED Orders 11/12/22 18:19 XR chest 1V Stat EKG-12 Lead Stat 11/12/22 18:30 BNP [NT-proBNP (BNP-Adult 18+)] Stat Complete Blood Count AUTO DIFF Stat Comprehensive Metabolic Panel Stat Lipase Stat Magnesium Stat PTT Partial Thromboplastin Tino Stat Prothrombin Time INR Stat Troponin & CK Cardiac Panel Stat Discontinued Medications Aspirin (Aspirin 81 Mg Chew Tab) 324 mg PO NOW ONE Stop: 11/12/22 18:20 Last Admin: 11/12/22 19:12 Dose: Not Given Documented By: MARTY Metoprolol Succinate (Metoprolol Er 25 Mg Tablet) 25 mg PO NOW ONE Stop: 11/12/22 19:29 Last Admin: 11/12/22 19:35 Dose: 25 mg Documented By: MARTY Vital Signs Vital signs: Vital Signs - 8 hr 11/12/22 18:13 11/12/22 19:32 Temperature 97 F L Pulse Rate 102 H 103 H Respiratory Rate 18 18 Blood Pressure 129/72 117/73 Pulse Oximetry 98 95 Oxygen Delivery Method Room Air Room Air MDM - Arrhythmia/Palpitations Lab Data 11/12/22 18:30 11/12/22 18:30 Labs: Lab Results 11/12/22 11/12/2223 Range/Units 18:30 18:30 18:30 WBC 5.5 (4.5-11.0) X10^3/uL RBC 4.54 (4.5-5.9) X10^6/uL Hgb 14.5 (13.5-17.5) g/dL Hct 41.6 (41-53) % MCV 91.6 (80-100) fL MCH 31.9 (26-34) PG MCHC 34.9 (30-36) % RDW 13.3 (11.6-14.8) % Plt Count 230 (150-400) X10^3/uL Neut % (Auto) 73.8 (50-75) % Lymph % (Auto) 13.7 L (25-40) % [place] % (Auto) 9.8 (3-14) % Eos % (Auto) 2.0 (2-4) % Baso % (Auto) 0.7 (0-2) % Neut # (Auto) 4100 (9609-0817) /uL Lymph # (Auto) 800 L (7885-2168) /uL [place] # (Auto) 500 (0-900) /uL Eos # (Auto) 100 (0-450) /uL Baso # (Auto) 0 (0-100) /uL PT 13.3 H (10.1-12.7) SECONDS INR 1.2 (0.9-1.3) APTT 36 (26-36) SECONDS Sodium 136 L (137-145) mmol/L Potassium 4.3 (3.4-5.1) mmol/L Chloride 101 (98-107) mmol/L Carbon Dioxide 28 (22-32) mmol/L BUN 14 (9-20) mg/dL Creatinine 0.59 L (0.66-1.25) mg/dL Estimated GFR > 60 (>60) mL/min BUN/Creatinine Ratio 23.7 H (6-22) Glucose 127 H (80-110) mg/dL Calcium 8.9 (8.4-10.2) mg/dL Magnesium 2.2 (1.6-2.3) mg/dL Total Bilirubin 0.5 (0.2-1.3) mg/dL AST 46 (17-59) IU/L ALT 29 (<50) IU/L Alkaline Phosphatase 60 (38-126) U/L Total Creatine Kinase 101 (55-170) U/L CK-MB (CK-2) 5.13 H (<2.37) ng/mL CK-MB (CK-2) Rel Index 5.1 H (1.5-5.0) % Troponin I < 0.012 (0.01-0.034) ng/mL NT-Pro-B Natriuret Pep 817 H (<450) pg/mL Total Protein 7.0 (6.3-8.2) g/dL Albumin 4.3 (3.5-5.0) g/dL Globulin 2.7 (1.7-4.1) g/dL Albumin/Globulin Ratio 1.6 (1.0-2.8) Lipase 136 (23-300) U/L Imaging Data Chest x-ray: Radiologist's Impresson: PROCEDURE:? XR CHEST 1V ? INDICATIONS:? chest pain ? TECHNIQUE:? One view of the chest was acquired.? ? COMPARISON:? [facility], , XR CHEST 1V, 03/02/2021, 11:12.? [facility], CR, XR CHEST 1V, 01/30/2021, 11:56. ? FINDINGS:? ? Surgical changes and devices:? Metal clips project over the upper mediastinum as before. ? Lungs and pleura:? No definite suspicious focal airspace opacity.? No pleural effusion or pneumothorax.? Lungs appear hyperinflated as before. ? Mediastinum:? Mediastinal and hilar contours appear similar to before. ? Bones and chest wall:? No suspicious bony lesions.? Gaseous distension of upper abdomen:, nonspecific. ? IMPRESSION:? No acute cardiopulmonary abnormality. ? ? Dictated by: Serafin Reyes M.D. on 11/12/2022 at 19:20 ? ? ECG Data Interpretation: Atrial fibrillation rate [address] changes similar to previous EKG in 2020 MDM Narrative Medical decision making narrative: Patient 82-year-old male anticoagulated on Xarelto for paroxysmal atrial fibri llation has undergone multiple cardioversions the past number of years. However recent ablation was canceled by the librarian specialist for probable thrombus in the atrium. This is confirmed by Dr. Davis on-call cardiology. She agrees with not cardioverting in the emergency department and rate control only. Blood work shows no leukocytosis, no anemia no electrolyte abnormality negative tro ponin BNP is 817 he has no evidence of congestive heart failure not hypoxic lungs are clear in x-ray. At this time patient is not a cardioversion candidate will need to be rate controlled. He is given 1 dose of metoprolol here in the ED and a prescription he will call Dr. Bowie in the morning. Discharge Plan Departure Patient Disposition: Home Clinical Impression: Atrial fibrillation Instructions: DI for Atrial Fibrillation Activity Restrictions/Additional Instructions: *You have been diagnosed with atrial fibrillation *What to do: At this time you are not a candidate for cardioversion. Please call Dr. Bowie's office tomorrow *Continue to take medications as directed Metoprolol 25 mg twice daily until your heart rate is back into sinus rhythm --> SENT TO [facility] IN [place] *Follow up with your primary care provider in 2-3 days or call [phone] *Return to ER if you should have increasing chest pain palpitations passing out or any new, worsening or concerning symptoms Prescriptions: New metoprolol succinate 25 mg tablet extended release 24 hr 25 mg PO BID Qty: 30 0RF No Action levothyroxine 150 mcg capsule 150 mcg PO DAILY metoprolol tartrate 25 mg tablet 25 mg PO BID PRN (Reason: afib w/ RVR) Xarelto 20 mg tablet Xarelto 20 mg tablet 20 mg PO DAILY Referrals: Ramiro Granger MD [Primary Care Provider] - Stand Alone Forms: Patient Portal/API
[2022-11-12 19:32] VITALS: BP 117/73; PULSE 103; RESP 18; O2SAT 95
[2022-11-12] MEDS: METOPROLOL ER 25 MG TABLET PO (19:35)
== END 2022-11-12 20:05 | disposition home or self-care (01) ==
PROVIDERS: Emergency Provider Emergency Medicine; PCP Family Medicine
DX: I48.0 Paroxysmal atrial fibrillation (principal); R07.9 Chest pain, unspecified; Z79.01 Long term (current) use of anticoagulants
CPT/HCPCS: 36415; 71045; 80053; 82550; 82553; 83690; 83735; 83880; 84484; 85025; 85610; 85730; 93005; 93010; 99284